=== PATIENT | female | born 1995 | race Caucasian/White ===

== ENCOUNTER 2025-04-27 14:08 | Emergency (ER) | payer OTHER, SELFPAY ==
--- NOTE | ~2025-04-27 | XR_ITS ---
EXAMINATION: XR abdomen/kub 1V, 04/27/2025 14:46 CDT HISTORY: general bloating, pain x2 wks COMPARISON: No comparisons available. Technique: 3 view. Findings: Bowel gas pattern unremarkable. No obstruction. No free air. No abnormal calcifications No acute osseous abnormality. Impression: 1. No acute abnormality. Reviewed, dictated and finalized at location P. Impression: 1. No acute abnormality.
[2025-04-27 14:26] VITALS: BP 134/90; PULSE 97; RESP 16; TEMP 37.2; O2SAT 98
--- NOTE | 2025-04-27 14:45 | ED_ITS ---
HPI - Abdominal Pain General Chief Complaint: Abdominal Pain Stated Complaint: ABD PAIN Time Seen by Provider: 04/27/25 14:36 Source: patient and RN notes reviewed Mode of arrival: ambulatory Limitations: no limitations History of Present Illness HPI narrative: 29-year-old female patient presents today with history of feelings of abdominal bloating, burning, indigestion with occasional diarrhea intermittently over the past 2 weeks. The indigestion symptoms and burning in the esophagus have been prevalent after eating and has slightly improved since onset. Bloating waxes and wanes. Patient has tried Tums which has helped with the esophageal symptoms. Patient denies history of GERD, gastritis or gallbladder issues. History of appendectomy. Patient is still eating, but has tried to make some dietary modifications, but it has not seemed to help much with her symptoms. Related Data Home Medications ?Medication ?Instructions ?Recorded ?Confirmed ?Last Taken ?Type bupropion HCl 150 mg 24 hr tablet, mg PO 04/27/25 Unk nown History extended release levothyroxine 100 mcg tablet mcg 04/27/25 Unknown His tory sertraline 100 mg tablet mg 04/27/25 Unknown History Allergies Allergy/AdvReac Type Severity Reaction Status Date / Time Sulfa (Sulfonamide Allergy Mild Rash Verified 04/27/25 14:28 Antibiotics) [facility] Surgical History Surgical History (Updated 04/27/25 @ 14:47 by Elisabeth Arceo, FILE CONVERSION OPERATOR, [employer]) History of appendectomy Comments At time of signature, I have reviewed and agree with nursing past medical, surgical, social and family history unless otherwise noted. Please see nursing chart for further information. There is no relevant family history pertinent to the presenting complaint Exam Narrative: GENERAL: Well-appearing, well-nourished, and in no acute distress. HEAD: Normocephalic, atraumatic. EYES: EOMI. No redness or drainage. Conjunctivae normal. ENT: Mucous membranes pink and moist. NECK: Normal AROM. CHEST: No respiratory distress. Clear to auscultation. HEART: Regular rate and rhythm. No murmur appreciated. ABDOMEN: Soft, nontender, nondistended, normal active bowel sounds. EXTREMITIES: Normal range of motion. No edema. SKIN: Warm, dry, no rash. Capillary refill normal. Normal skin turgor. NEURO: No focal deficits. Alert and oriented x3. Gait steady. PSYCH: Normal affect. No signs of depression or anxiety. Course Course Level of Care: Express Care Visit Vital Signs Vital signs: Vital Signs Temperature 98.9 F 04/27/25 14:26 Pulse Rate 97 04/27/25 14:26 Respiratory Rate 16 04/27/25 14:26 Blood Pressure 134/90 04/27/25 14:26 Pulse Oximetry 98 04/27/25 14:26 Temperature 98.9 F 04/27/25 14:26 Pulse Rate 97 04/27/25 14:26 Respiratory Rate 16 04/27/25 14:26 Blood Pressure 134/90 04/27/25 14:26 Pulse Oximetry 98 04/27/25 14:26 Reviewed MDM - Abdominal Pain MDM Narrative Medical decision making narrative: 29-year-old female patient presents today with history of feelings of abdominal bloating, burning, indigestion with occasional diarrhea intermittently over the past 2 weeks. The indigestion symptoms and burning in the esophagus have been prevalent after eating and has slightly improved since onset. Bloating waxes and wanes. Patient has tried Tums which has helped with the esophageal symptoms. Patient denies history of GERD, gastritis or gallbladder issues. History of appendectomy. Patient is still eating, but has tried to make some dietary modifications, but it has not seemed to help much with her symptoms. Normal physical exam. Normal KUB. Recommend starting a PPI such as omeprazole and follow up with PCP or GI with continued symptoms. Patient agrees with plan. Vital signs stable. Anticipatory guidance and ED precautions given. Differential Diagnosis Differential diagnosis: Likely abdominal pain and other (GERD, gastritis, esophagitis, constipation, gallstones, cholecystitis) Imaging Data Radiologist's impression: ITS Impressions Abdomen X-Ray 04/27/25 15:18 Impression: 1. No acute abnormality. Critical Care Time Critical Care Time Critical Care Time: No Discharge Plan Discharge Clinical Impression: Abdominal discomfort Patient Disposition: Home Condition: Stable Instructions: Diet for Stomach Ulcers and Gastritis (ED), Abdominal Pain (ED) Additional Instructions: Please start the omeprazole and take as directed. You have been given some information regarding dietary modifications that may be helpful as well. Follow-up with your PCP or covering machine tender in 1 week if symptoms are not improving. As discussed, if symptoms worsen go to the ER for further evaluation. Patient Language: Yakut Prescriptions: New omeprazole 40 mg capsule,delayed release(DR/EC) 40 mg PO BID 14 Days Qty: 28 0RF No Action sertraline 100 mg tablet levothyroxine 100 mcg tablet bupropion HCl 150 mg tablet extended release 24 hr PO Follow-up/Referrals: Della,ROBERTA Ordoñez [Primary Care Provider, Unknown] Time of Disposition: 15:33
== END 2025-04-27 15:47 | disposition home or self-care (01) ==
PROVIDERS: Emergency Provider Nurse Practitioner; PCP Physician Assistant
DX: R10.10 Upper abdominal pain, unspecified (principal); R14.0 Abdominal distension (gaseous)
CPT/HCPCS: 74018; 99203; G0463